=== PATIENT | male | born 1985 | race Caucasian/White ===

== ENCOUNTER 2017-04-19 15:03 | Emergency (ER) | payer OTHER ==
[~2017-04-19] VITALS: Ht 190.5 cm; Wt 116.8 kg
[2017-04-19 15:03] VITALS: BP 135/68
[2017-04-19] MEDS ORDERED: MUCI600T37 PO (15:18)
[2017-04-19] MEDS ORDERED: AZITHROMYCIN 250 MG TAB PO ONE (16:30)
[2017-04-19] MEDS ORDERED: AZIT-12 PO (16:30)
[2017-04-19] MEDS ORDERED: GUAISYP4 PO (16:30)
== END 2017-04-19 16:42 | disposition home or self-care (01) ==
LOC: M ED 15:03
DX: J20.9 Acute bronchitis, unspecified (principal); J01.90 Acute sinusitis, unspecified; Z79.899 Other long term (current) drug therapy; Z88.0 Allergy status to penicillin; Z88.2 Allergy status to sulfonamides

== ENCOUNTER 2019-03-13 21:35 | Emergency (ER) | payer OTHER ==
[~2019-03-13] VITALS: Ht 193 cm; Wt 122.7 kg
[~2019-03-13 21:35] MED LIST: AZIT-12 PO; GUAISYP4 PO; MUCI600T37 PO
[2019-03-13] MEDS ORDERED: ACET1TAB55 (21:47)
[2019-03-13] MEDS ORDERED: LORA24TA (21:47)
[2019-03-13] MEDS ORDERED: ACETAMINOPHEN TAB 650MG DOSE (2X325MG) PO ONE (22:00)
[2019-03-13 23:00] LABS: INFLUENZA A AMPLIFICATION NEGATIVE (NEGATIVE); INFLUENZA B AMPLIFICATION NEGATIVE (NEGATIVE)
[2019-03-13] MEDS ORDERED: KETOROLAC 30 MG/ML VIAL (J1885) IV ONE (23:45)
[2019-03-13] MEDS ORDERED: NS 1,000 ML IV ONE (23:45)
[2019-03-13] MEDS ORDERED: IPRATROPIUM 0.5MG/ALBUTEROL 2.5MG INH SOL UD 3ML (DUONEB)(J7620) NEB PRN (23:45)
[2019-03-14 00:05] LABS: BASO # 0.1 10^3/uL (0.0-0.2); BASO % 0.7 % (0.0-1.0); HEMATOCRIT 44.4 % (42.0-52.0); HEMOGLOBIN 14.7 g/dl (13.5-17.5); LYMPH # 1.3 10^3/uL (1.5-5.0); LYMPH % 17.5 % (24.0-44.0); MEAN CORPUSCULAR HEMOGLOBIN 30.1 pg (27.0-33.0); MEAN CORPUSCULAR HGB CONC 33.1 g/dl (32.0-36.5); MONO # 0.7 10^3/uL (0.0-0.8); NEUTROPHILS # 5.3 10^3/uL (1.5-8.5); NEUTROPHILS % 71.7 % (36.0-66.0); PLATELET COUNT, AUTOMATED 211 10^3/uL (150-450); RED BLOOD COUNT 4.88 10^6/uL (4.30-6.10); WHITE BLOOD COUNT 7.4 10^3/uL (4.0-10.0)
[2019-03-14] MEDS ORDERED: PROAAER10 INH (00:49)
[2019-03-14] MEDS ORDERED: AZIT-12 PO (00:49)
[2019-03-14] MEDS ORDERED: TESS100C PO (00:49)
[2019-03-14] MEDS ORDERED: AZITHROMYCIN 250 MG TAB PO ONE (01:00)
--- NOTE | 2019-03-14 01:16 | REP ---
Clinical: Cough and fever. Technique: PA and lateral. Comparison: None. Findings: Lateral view best demonstrates basilar infiltrate/atelectasis. No effusion. No pneumothorax. Mediastinum and cardiac silhouette are normal. Skeletal structures are intact. Impression: Lateral view suggesting basilar atelectasis. Electronically Signed by Feliberto Deleon MD 03/14/2019 01:07 A
[2019-03-14 01:21] VITALS: BP 114/53
== END 2019-03-14 02:04 | disposition home or self-care (01) ==
LOC: M ED 21:35
DX: J18.9 Pneumonia, unspecified organism (principal); Z88.0 Allergy status to penicillin; Z88.1 Allergy status to other antibiotic agents; Z88.2 Allergy status to sulfonamides
CPT/HCPCS: 71046; 80047; 85025; 87040; 87502; 96361; 96374; 99284; J1885